=== PATIENT | male | born 1980 | race Caucasian/White ===

== ENCOUNTER 2017-09-11 13:44 | Day surgery (SDC) | payer BC ==
[~2017-09-11] VITALS: Ht 162.6 cm; Wt 72.6 kg
[~2017-09-11 13:44] MED LIST: 5-HTP100 MG PO; ABILIFY5 MG PO; BUSPIRONE HCL10 MG PO; CITALOPRAM HBR10 MG PO; EXCEDRIN1 TABLET PO; KLONOPIN0.5 M1 PO; MELOXICAM15 MG PO; MOTRIN600 MG PO; MULTIVITAMIN1 EAC1 PO; PANTOPRAZOLE SO40 MG PO; PERCOCET 5/31 TABLET PO; SIMVASTATIN40 MG PO; VICODIN ES 71 TABLET PO
== END 2017-09-11 15:15 | disposition home or self-care (01) ==
LOC: PAIN 13:44 → SDC 09-13 14:15 → PAIN 09-13 15:15
DX: M53.3 Sacrococcygeal disorders, not elsewhere classified (principal); M46.1 Sacroiliitis, not elsewhere classified; M54.5 Low back pain; K21.9 Gastro-esophageal reflux disease without esophagitis; Z87.891 Personal history of nicotine dependence
CPT/HCPCS: J1030; J2250; J3010; S0020

== ENCOUNTER 2017-12-10 13:04 | Day surgery (SDC) | payer BC ==
[~2017-12-10] VITALS: Ht 162.6 cm; Wt 68.9 kg
[~2017-12-10 13:04] MED LIST changes: +ADDERALL XR 1515 MG PO; +LORCET 5-325 M1 EACH PO
== END 2017-12-10 14:30 | disposition home or self-care (01) ==
LOC: PAIN 13:04 → SDC 13:30 → PAIN 13:30
DX: M53.3 Sacrococcygeal disorders, not elsewhere classified (principal); M46.1 Sacroiliitis, not elsewhere classified; M47.26 Other spondylosis with radiculopathy, lumbar region; F41.8 Other specified anxiety disorders; K21.9 Gastro-esophageal reflux disease without esophagitis; Z87.891 Personal history of nicotine dependence
CPT/HCPCS: J1030; J2250; J3010; S0020

== ENCOUNTER 2018-03-07 11:18 | Day surgery (SDC) | payer BC ==
[~2018-03-07] VITALS: Ht 162.6 cm; Wt 69.0 kg
[~2018-03-07 11:18] MED LIST changes: +MOBIC15 MG PO
== END 2018-03-07 12:53 | disposition home or self-care (01) ==
LOC: PAIN 11:18 → SDC 11:45 → PAIN 12:53
DX: M47.816 Spondylosis without myelopathy or radiculopathy, lumbar region (principal); M54.16 Radiculopathy, lumbar region; M53.3 Sacrococcygeal disorders, not elsewhere classified; Z87.891 Personal history of nicotine dependence; F41.9 Anxiety disorder, unspecified; E78.5 Hyperlipidemia, unspecified; K21.9 Gastro-esophageal reflux disease without esophagitis; Z79.891 Long term (current) use of opiate analgesic
CPT/HCPCS: J1030; J2250; S0020

== ENCOUNTER 2018-03-21 11:06 | Day surgery (SDC) | payer BC ==
[~2018-03-21] VITALS: Ht 162.6 cm; Wt 69.0 kg
== END 2018-03-21 12:00 | disposition home or self-care (01) ==
LOC: PAIN 11:06 → SDC 11:45 → PAIN 12:00
DX: M47.816 Spondylosis without myelopathy or radiculopathy, lumbar region (principal); M54.16 Radiculopathy, lumbar region; F41.8 Other specified anxiety disorders; E78.5 Hyperlipidemia, unspecified; K21.9 Gastro-esophageal reflux disease without esophagitis; Z87.891 Personal history of nicotine dependence; M53.3 Sacrococcygeal disorders, not elsewhere classified
CPT/HCPCS: J1030; J2250; S0020

== ENCOUNTER 2018-04-25 11:09 | Day surgery (SDC) | payer BC ==
[~2018-04-25] VITALS: Ht 162.6 cm; Wt 69.0 kg
[~2018-04-25 11:09] MED LIST changes: +ENDOCET 5-3251 EACH PO; -LORCET 5-325 M1 EACH PO
== END 2018-04-25 12:10 | disposition home or self-care (01) ==
LOC: PAIN 11:09 → SDC 11:30 → PAIN 12:10
DX: M47.816 Spondylosis without myelopathy or radiculopathy, lumbar region (principal); M54.16 Radiculopathy, lumbar region; F41.8 Other specified anxiety disorders; K21.9 Gastro-esophageal reflux disease without esophagitis; Z87.891 Personal history of nicotine dependence; Z79.891 Long term (current) use of opiate analgesic
CPT/HCPCS: J1030; J2250; S0020

== ENCOUNTER 2018-05-02 11:05 | Day surgery (SDC) | payer BC ==
[~2018-05-02] VITALS: Ht 162.6 cm; Wt 65.8 kg
== END 2018-05-02 12:30 | disposition home or self-care (01) ==
LOC: PAIN 11:05 → SDC 11:30 → PAIN 12:30
DX: M47.816 Spondylosis without myelopathy or radiculopathy, lumbar region (principal); Z87.891 Personal history of nicotine dependence; M54.16 Radiculopathy, lumbar region; F90.9 Attention-deficit hyperactivity disorder, unspecified type; E78.5 Hyperlipidemia, unspecified; K21.9 Gastro-esophageal reflux disease without esophagitis; F32.9 Major depressive disorder, single episode, unspecified
CPT/HCPCS: J1030; J2250; S0020

== ENCOUNTER 2018-05-11 10:32 | Emergency (ER) | payer BC ==
[~2018-05-11] VITALS: Ht 162.6 cm; Wt 64.0 kg
[2018-05-11 12:00] LABS: HEMATOCRIT 41.9 % (38.0-50.0); HEMOGLOBIN 15.1 G/DL (12.5-16.6); MCH 31.1 PG (29.0-34.0); MCV 86.4 FL (86-99); PLATELET COUNT 326 K/uL (156-360); RBC DIS.WIDTH-CV 12.6 % (11.8-14.6); RBC DIS.WIDTH-SD 39.3 % (39-53); RED BLOOD COUNT 4.85 M/uL (4.00-5.50); WHITE BLOOD COUNT 10.5 K/uL (4.1-10.2)
[2018-05-11 12:11] LABS: CHLORIDE 104 mEq/L (99-109); POTASSIUM 3.4 mEq/L (3.7-5.4); SODIUM 140 mEq/L (136-147)
[2018-05-11 12:12] LABS: GLUCOSE 112 mg/dL (70-99)
[2018-05-11 12:16] LABS: GFR ESTIMATE (CALCULATED) > 59 mL/min/ (58.99-99999)
[2018-05-11 12:17] LABS: UREA NITROGEN (BUN) 14 mg/dL (9-23)
[2018-05-11] MEDS ORDERED: REGLAN10 MG PO (12:35)
[2018-05-11 12:45] VITALS: BP 124/84
== END 2018-05-11 12:46 | disposition home or self-care (01) ==
LOC: EME 10:32
PROVIDERS: Nurse Practitioner Family
DX: G43.909 Migraine, unspecified, not intractable, without status migrainosus (principal); F32.9 Major depressive disorder, single episode, unspecified; K21.9 Gastro-esophageal reflux disease without esophagitis; Z87.891 Personal history of nicotine dependence
CPT/HCPCS: 80048; 85027; 99281; 99285; J1200; J1885; J2765; J7030